=== PATIENT | female | born 1995 | race Hispanic/Latino ===

== ENCOUNTER 2019-11-11 16:15 | Emergency (ER) | payer OTHER ==
[2019-11-11 17:12] LABS: RAPID GROUP A STREP NEGATIVE (NEGATIVE)
== END 2019-11-11 17:24 | disposition home or self-care (01) ==
LOC: EDH 16:15
DX: J11.1 Influenza due to unidentified influenza virus with other respiratory manifestations (principal); Z90.49 Acquired absence of other specified parts of digestive tract; Z88.5 Allergy status to narcotic agent
CPT/HCPCS: 81025; 87804; 87880

== ENCOUNTER 2021-06-16 07:12 | Emergency (ER) | payer OTHER ==
[~2021-06-16] VITALS: Ht 172.7 cm; Wt 59.0 kg
[2021-06-16 07:14] VITALS: BP 129/73
[2021-06-16 07:16] VITALS: BP 129/73
[2021-06-16] MEDS ORDERED: IBUPROFEN 600 MG TABLET ONE (08:26)
[2021-06-16] MEDS ORDERED: CORTSOL AD (08:27)
[2021-06-16] MEDS ORDERED: IBUP-2070 PO (08:29)
[2021-06-16] MEDS ORDERED: IBUPROFEN 600 MG TABLET PO SCH (08:30)
== END 2021-06-16 08:44 | disposition home or self-care (01) ==
LOC: EDH 07:12
DX: H60.91 Unspecified otitis externa, right ear (principal); N93.9 Abnormal uterine and vaginal bleeding, unspecified; Z79.1 Long term (current) use of non-steroidal anti-inflammatories (NSAID)
CPT/HCPCS: 81025

== ENCOUNTER 2021-07-17 05:12 | Emergency (ER) | payer SELFPAY ==
[~2021-07-17] VITALS: Ht 170.2 cm; Wt 95.3 kg
[~2021-07-17 05:12] MED LIST: CORTSOL AD; IBUP-2070 PO
[2021-07-17] MEDS ORDERED: IBUPROFEN 600 MG TABLET PO ONE (06:00)
[2021-07-17 06:42] VITALS: BP 136/85
== END 2021-07-17 06:49 | disposition home or self-care (01) ==
LOC: EDH 05:12
DX: H60.91 Unspecified otitis externa, right ear (principal); Z79.1 Long term (current) use of non-steroidal anti-inflammatories (NSAID)
CPT/HCPCS: 99282